=== PATIENT | male | born 1980 | race Caucasian/White ===

== ENCOUNTER 2022-12-23 11:10 | Emergency (ER) | payer BC ==
[~2022-12-23] VITALS: Ht 188 cm; Wt 148.8 kg
[2022-12-23 11:41] LABS: BASOPHILS 0.4 % (0-2); EOSINOPHILS 1.6 % (0-6); HEMATOCRIT 44.3 % (35.0-50.0); HEMOGLOBIN 14.9 g/dL (12.0-18.0); LYMPHOCYTES 40.2 % (24-44); MCH 29.8 (27-36); MCHC 33.7 g/dl (30-36); MCV 88.3 fl (81-99); MONOCYTES 8.7 % (0-12); NEUTROPHILS 49.1 % (39-80); PLATELET COUNT 215 K/uL (140-440); RBC 5.02 M/ul (4.3-5.7); RDW 14.4 (10.5-15.0)
[2022-12-23 11:52] LABS: ALBUMIN 3.8 g/dL (3.4-5.0); ALBUMIN/GLOBULIN RATIO 1.09 (1.1-2.4); ALKALINE PHOSPHATASE 79 U/L (46-116); ALT (SGPT) 22 U/L (14-59); ANION GAP 9.9 (7-21); AST (SGOT) 15 U/L (15-37); BILIRUBIN, TOTAL 0.5 ng/dL (0.2-1.0); CARBON DIOXIDE 30 mmol/L (21-32); CHLORIDE 104 mmol/L (98-107); GLOMERULAR FILTRATION RATE,EST 97 mL/min (>60); POTASSIUM 3.9 mmol/L (3.5-5.1); PROTEIN, TOTAL 7.3 g/dL (6.4-8.2); UREA NITROGEN 10 mg/dL (7-18)
[2022-12-23 12:16] VITALS: BP 116/92
--- NOTE | 2022-12-24 15:19 | EKG ---
[facility] [address] [facility] [place], [place] [address] Signed Normal sinus rhythm with sinus arrhythmia Normal ECG Confirmed by BERKLEY PEDROZA MD ([id number]) on 12/24/2022 3:19:40 PM Electronically Signed By: BERKLEY PEDROZA 12/24/22 1519 PATIENT NAME: HARRISON SMITH CLEMONS Electrocardiogram DATE OF : 82 PHYSICIAN: BERKLEY PEDROZA REPORT #: [id number] REPORT IS CONFIDENTIAL AND NOT TO BE RELEASED WITHOUT AUTHORIZATION
== END 2022-12-23 12:15 | disposition home or self-care (01) ==
LOC: ED 11:10
PROVIDERS: Emergency Medicine
DX: I49.3 Ventricular premature depolarization (principal); Z91.011 Allergy to milk products
CPT/HCPCS: 36415; 71045; 80053; 83735; 84484; 85025; 93005; 93010; 99285-25